=== PATIENT | female | born 1995 | race Caucasian/White ===

== ENCOUNTER 2019-08-12 18:28 | Emergency (ER) | payer SELFPAY ==
[~2019-08-12] VITALS: Ht 162.6 cm; Wt 65.9 kg
[2019-08-12 18:44] VITALS: BP 146/89
--- NOTE | 2019-08-12 18:59 | PHYS DOC ---
Adult General Chief Complaint Chief Complaint: DENTAL PROBLEM HPI HPI 23-year-old female presents to the emergency Department complaints of tooth pain. She has multiple dental caries, states she's been using [id number]-[id number] medications without improvement. No evidence of fever, abnormal vital signs appr eciated in the emergency department. She has no concern for abscess on physical examination. Nothing makes her pain better, nothing makes her pain worse. All other ROS negative unless documented in HPI Review of Systems Review of Systems See Above Current Medications Current Medications Current Medications Medications (Trade) Dose Ordered Sig/Eli Start Time Stop Time Status Last Admin Dose Admin Bupivacaine HCl (Sensorcaine Mpf 0.5%) 30 ml 1X ONCE 08/12/19 19:00 08/12/19 19:01 DC Allergies Allergies Allergies Coded Allergies Type Severity Reaction Last Updated Verified No Known Drug Allergies 08/12/19 No Physical Exam Physical Exam See Above Constitutional: Well developed, well nourished, distress 2/2 pain, non-toxic appearance. [] HENT: Normocephalic, atraumatic, bilateral external ears normal, oropharynx moist, no oral exudates, nose normal. Patient with multiple dental caries, no abscess or drainage [] Neck: Normal range of motion, no tenderness, supple, no stridor. [] Cardiovascular:Heart rate regular rhythm, no murmur [] Lungs & Thorax: Bilateral breath sounds clear to auscultation [] Skin: Warm, dry, no erythema, no rash. [] Neurologic: Alert and oriented X 3, no focal deficits noted. [] Psychologic: Affect normal, judgement normal, mood normal. [] Current Patient Data Vital Signs Vital Signs Date Time Temp Pulse Resp B/P (MAP) Pulse Ox O2 Delivery O2 Flow Rate FiO2 08/12/19 18:44 98.4 80 24 146/89 (108) 98 Room Air 98.4 EKG EKG [] Radiology/Procedures Radiology/Procedures [] Course & Med Decision Making Course & Med Decision Making Pertinent Labs and Imaging studies reviewed. (See chart for details) []23-year-old female presents to the emergency Department complaints of tooth pain. She has multiple dental caries, states she's been using [id number] medications without improvement. No evidence of fever, abnormal vital signs appreciated in the emergency department. She has no concern for abscess on physical examination. Nothing makes her pain better, nothing makes her pain worse. Dental block performed with 0.5%bupivicaine/1%lidocaine 2ml injected Patient without evidence of acute infection on exam Recommend following up with dentist as outpatient No signs of infection appreciated Ramón Disclaimer Dragon Disclaimer This electronic medical record was generated, in whole or in part, using a voice recognition dictation system. Departure Departure Impression: Primary Impression: Dental caries Disposition: HOME, SELF-CARE Condition: IMPROVED Referrals: NO PCP (PCP) Patient Instructions: Dental Caries-Brief Additional Instructions: Recommend follow up with PCP 3 - 5 days Return to the ER with worsening symptoms, intractable pain, fever, altered mental status Tylenol/Motrin as needed for pain dental block performed in ER No signs of infection appreciated - no need for abx at this time Recommend following up with dentist as outpatient DOROTEO WILLS MD Aug 12, 2019 18:59
[2019-08-12] MEDS ORDERED: BUPIVACAINE MPF 0.5% 30 ML VIAL. INJ ONE (19:00)
== END 2019-08-12 19:15 | disposition home or self-care (01) ==
LOC: ER 18:28
DX: K02.9 Dental caries, unspecified (principal); K08.89 Other specified disorders of teeth and supporting structures
CPT/HCPCS: 64400; 99284; J3490